=== PATIENT | male | born 1955 | race Caucasian/White ===

== ENCOUNTER 2017-01-25 16:36 | Emergency (ER) | payer OTHER ==
[~2017-01-25] VITALS: Ht 175.3 cm; Wt 90.0 kg
[2017-01-25 16:37] VITALS: BP 166/105; PULSE 70; RESP 18; TEMP 97.8; O2SAT 97
--- NOTE | 2017-01-25 17:19 | PD ---
HPI Chief Complaint: Back/ Neck Pain or Injury Time Seen by Provider: 17:19 Travel History International Travel<30 days: No Contact w/Intl Traveler<30days: No Traveled to known affect area: No History of Present Illness HPI 61-year-old male presents to emergency Department with complaint of left thoracic back pain since . He thinks he bench pressed too much weight causing muscle spasms to his left paraspinal area. He is also complaining of left lower abdominal pain but does not want the abdominal pain evaluated at this time; he states he thinks his abdominal pain is related to doing too many sit ups and wants to see if it resolves on its own. He denies encopresis, incontinence, saddle anesthesias. Denies paresthesias, loss of sensation or decreased range of motion, decreased strength to bilateral lower extremities. Denies difficulty ambulating. Denies IV drug use or cancer. Denies fever, vomiting. Denies dysuria, hematuria. Denies history of kidney stones. Has been taking Aleve for symptom management. Has also seen chiropractic and massage therapist for symptom management. Pain is decreased with laying flat. Pain is aggravated with sitting and laying in position for too long. Has no other medical complaint. No known allergies. No other modifying factors or associated signs and symptoms. PFSH Past Medical History Diminished Hearing: No Hiatal Hernia: Yes Tetanus Vaccination: < 5 Years Influenza Vaccination: Yes ?: Not Past Surgical History Other Surgery: Yes (HERNIA SX X 2) Social History Alcohol Use: Yes (OCC) Tobacco Use: No Substance Use: No Allergies-Medications (Allergen,Severity, Reaction): Coded Allergies: No Known Allergies (Unverified , 01/25/17) Reported Meds & Prescriptions Reported Meds & Active Scripts Active Ibuprofen 800 Mg Tab 800 Mg PO Q6HR PRN Robaxin (Methocarbamol) 500 Mg Tab 500 Mg PO QID PRN Review of Systems Except as stated in HPI: all other systems reviewed are Neg Physical Exam Narrative GENERAL: Well-nourished, well-developed male patient, in no acute distress; afebrile, nontoxic-appearing SKIN: Warm and dry. HEAD: Atraumatic. Normocephalic. EYES: Pupils equal and round. No scleral icterus. No injection or drainage. ENT: Mucosa pink and moist. Airway patent. NECK: Trachea midline. CARDIOVASCULAR: Regular rate. RESPIRATORY: No accessory muscle use. GASTROINTESTINAL: Abdomen soft, left lower quadrant tenderness, nondistended. Bowel sounds active 4 quadrants. No guarding. Nonrigid. MUSCULOSKELETAL: Bilateral lower extremities supple and non-tense with 2+ pedal pulses and sensory intact; with full range of motion and 5/5 strength. Active dorsiflexion and extension of bilateral feet. Bilateral straight leg raise is bilaterally for low back pain. Ambulatory in room with normal gait. Sitting up in bed at 90. No obvious deformities. No clubbing. No cyanosis. No edema. BACK: No midline point tenderness on palpation of the lumbar or thoracic spine. Reproducible tenderness to the left paraspinal musculature of the thoracic spine. No obvious deformities. NEUROLOGICAL: Awake and alert. Oriented 3. No obvious cranial nerve deficits. Motor grossly within normal limits. Normal speech. Moves all extremities. 5/5 strength to all extremities. Sensory intact. PSYCHIATRIC: Appropriate mood and affect; insight and judgment normal. Data Data Last Documented VS Vital Signs Date Time Temp Pulse Resp B/P Pulse Ox O2 Delivery O2 Flow Rate FiO2 01/25/17 16:37 97.8 70 18 166/105 97 Orders Ketorolac Inj (Toradol Inj) (01/25/17 17:30) Orphenadrine Inj (Norflex Inj) (01/25/17 17:30) MDM Medical Decision Making Medical Screen Exam Complete: Yes Emergency Medical Condition: Yes Medical Record Reviewed: Yes Differential Diagnosis Thoracic back strain, thoracic back pain, muscle spasm Narrative Course 61-year-old male physical exam consistent with left-sided paraspinal thoracic back pain and spasm of thoracic back muscle. No midline point tenderness on palpation of the thoracic spine. Patient is in the truth normal gait. Denies encopresis, incontinence, saddle anesthesias. Denies IV drug use or cancer. Patient is afebrile and nontoxic-appearing. Denies fever, vomiting. Patient is complaining of left lower quadrant abdominal pain but relates it to doing too many sit ups and does not want to be evaluated for abdominal pain at this time. Reasons were discussed return to the emergency department and patient verbalized understanding and agreement. Toradol and Norflex administered in the ER. Ibuprofen and Robaxin prescribed for home. Instructed patient to follow up with primary care provider. Patient verbalizes understanding and agreement with treatment plan. Patient is medically cleared and stable for discharge. Discussed reasons to return to the emergency department. Patient agrees with treatment plan. The patients vital signs are stable and the patient is stable for outpatient follow-up and treatment. Patient discharged home, stable and in no acute distress. Diagnosis Primary Impression: Left-sided thoracic back pain Qualified Code: M54.6 - Left-sided thoracic back pain, unspecified chronicity Additional Impression: Spasm of thoracic back muscle Referrals: Primary Care Physician Patient Instructions: General Instructions, Muscle Spasm (ED), Thoracic Back Strain (ED) Departure Forms: Tests/Procedures, Work Release Enter return to work date: Jan 27, 2017 Additional Instructions: Tylenol or ibuprofen as directed and as needed for pain Robaxin as prescribed and as needed for muscle spasms Heating pad and/or ice to affected area to reduce pain Avoid aggravating activities; increase activity as tolerated Follow-up with primary care provider Return to emergency department immediately with worsening of symptoms Med/Other Pt SpecificInfo: Prescription(s) given Scripts Ibuprofen 800 Mg [id number] Mg PO Q6HR PRN (PAIN) #30 TAB Ref 0 Prov:Concepcion Santana 01/25/17 Methocarbamol (Robaxin)500 Mg [id number] Mg PO QID PRN (MUSCLE SPASM) #30 TAB Ref 0 Prov:Concepcion Santana 01/25/17 Disposition: 01 DISCHARGE HOME Condition: Stable Concepcion Santana Jan 25, 2017 17:19
[2017-01-25] MEDS ORDERED: IBUP800T23 PO (17:22)
[2017-01-25] MEDS ORDERED: ROBA500T PO (17:22)
[2017-01-25] MEDS ORDERED: ORPHENADRINE INJ 60 MG/2 ML AMP IM ONE (17:30)
[2017-01-25] MEDS ORDERED: KETOROLAC TROMETHAMINE 60 MG/2 ML (IM) VIAL IM ONE (17:30)
== END 2017-01-25 17:32 | disposition home or self-care (01) ==
LOC: NEPK 16:36
DX: M54.6 Pain in thoracic spine (principal); R10.32 Left lower quadrant pain
CPT/HCPCS: 96372; 99284; J1885; J2360